=== PATIENT | male | born 2000 | race Caucasian/White ===

== ENCOUNTER 2019-04-26 17:30 | Emergency (ER) | payer BC ==
[2019-04-26 18:16] VITALS: BP 137/81
--- NOTE | 2019-04-26 18:58 | ED ---
GI/ HPI - HPI Summary HPI Summary: 19 yr old male with the complaint of scrotal itching. He has no penile itching. No discharge and no dysuria. The patient plays Lacrosse and practices now. He wears an athletic supporter. He has itching without any lesion or redness to the scrotum. He has no testicular pain. No inguinal or groin pain or rash. He is sexually active, but is not concerned about any exposure. He does not want any blood work done. No RPR or HIV. He only wants the urine sent for GC and Chlamydia. - History of Current Complaint Chief Complaint: UCSkin Time Seen by Provider: 04/26/19 18:26 Stated Complaint: PERSONAL Pain Intensity: 0 - Allergy/Home Medications Allergies/Adverse Reactions: Allergies Allergy/AdvReac Type Severity Reaction Status Date / Time No Known Allergies Allergy Verified 04/26/19 18:17 PMH/Surg Hx/FS Hx/Imm Hx Infectious Disease History: No Infectious Disease History: Denies: Traveled Outside the [place] in Last 30 Days - Family History Known Family History: Positive: None Negative: Diabetes - Social History Alcohol Use: Occasionally Substance Use Type: Reports: None Smoking Status (MU): Current Some Day Smoker Type: Cigars Review of Systems Constitutional: Negative Positive: Other - skin irritation scrotum. All Other Systems Reviewed And Are Negative: Yes Physical Exam Triage Information Reviewed: Yes Vital Signs On Initial Exam: Initial Vitals Temp Pulse Resp BP Pulse Ox 98.1 F 59 16 137/81 100 04/26/19 18:14 04/26/19 18:14 04/26/19 18:14 04/26/19 18:14 04/26/19 18:14 Vital Signs Reviewed: Yes Appearance: Positive: Well-Appearing, No Pain Distress Skin: Positive: Warm, Skin Color Reflects Adequate Perfusion Head/Face: Positive: Normal Head/Face Inspection Eyes: Positive: EOMI Respiratory/Lung Sounds: Positive: Other - normal effort Cardiovascular: Positive: Pulses are Symmetrical in both Upper and Lower Extremities Abdomen Description: Positive: Nontender, No Organomegaly Male Genital Exam: Positive: Normal Genitalia, No Hernia, Other - No obvious redness or lesions or vesicles to the scrotal skin.. Negative: Inguinal Tenderness, Scrotum Tenderness (R), Scrotum Tenderness (L), Testicular Tenderness (R), Testicular Tenderness (L), Urethral Discharge Musculoskeletal: Positive: Strength/ROM Intact Neurological: Positive: Sensory/Motor Intact, Alert, Oriented to Person Place, Time, CN Intact II-III, Speech Normal Psychiatric: Positive: Normal Diagnostics - Vital Signs Vital Signs Temp Pulse Resp BP Pulse Ox 04/26/19 18:14 98.1 F 59 16 137/81 100 - Laboratory Lab Statement: Any lab studies that have been ordered have been reviewed, and results considered in the medical decision making process. GIGU Course/Dx - Course Course Of Treatment: 19 yr old with scrotal itching. DC home. Recommend miconazole powder for the next week. 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 - Diagnoses Provider Diagnoses: Tinea cruris Discharge ED - Sign-Out/Discharge Documenting (check all that apply): Patient Departure All imaging exams completed and their final reports reviewed: No Studies - Discharge Plan Condition: Good Disposition: HOME Patient Education Materials: Jock Itch (ED), Hypertension (ED) Referrals: [facility] [place] PHYSICIAN REFERRAL [Outside] - 2 Days No Primary Care Phys,NOPCP [Primary Care Provider] - Additional Instructions: leaf size picker miconazole powder at the drug store. Ask the pharmacist to find it if you need help. It should be in the antifungal section. Use the powder twice a day to the area for the next week. - Billing Disposition and Condition Condition: GOOD Disposition: Home
[2019-04-29 13:28] LABS: Chlamydia trachomatis NAA Negative (Negative); Neisseria gonorrhoeae (GC) NAA Negative (Negative)
== END 2019-04-26 19:03 | disposition home or self-care (01) ==
LOC: UCCORT 17:30
DX: B35.6 Tinea cruris (principal)
CPT/HCPCS: 87491; 87591; 99211; G0463

== ENCOUNTER 2019-07-28 10:05 | Emergency (ER) | payer BC ==
[2019-07-28 11:13] VITALS: BP 130/61
--- NOTE | 2019-07-28 12:44 | UC ---
Hand/Wrist HPI - HPI Summary HPI Summary: 19 yo male hyperextended his right wrist yesterday playing lacrosse He is right handed pain 11/02 - History Of Current Complaint Chief Complaint: UCUpperExtremity Stated Complaint: RIGHT WRIST INJURY Time Seen by Provider: 07/28/19 12:13 Hx Obtained From: Patient Onset/Duration: Sudden Onset, Lasting Hours Severity Initially: Severe Severity Currently: Moderate Pain Intensity: 5 Pain Scale Used: 0-10 Numeric Character Of Pain: Aching Alleviating Factor(s): Nothing Associated Signs And Symptoms: Positive: Swelling Related History: Dominant Hand Right Hands: 1 - swollen/tender distal radius/no snuff box tenderness - Allergies/Home Medications Allergies/Adverse Reactions: Allergies Allergy/AdvReac Type Severity Reaction Status Date / Time No Known Allergies Allergy Verified 07/28/19 11:07 Home Medications: Home Medications NK [No Home Medications Reported] 07/28/19 [History Confirmed 07/28/19] PMH/Surg Hx/FS Hx/Imm Hx Previously Healthy: Yes - Surgical History Surgical History: None - Family History Known Family History: Positive: Hypertension Negative: Diabetes - Social History Alcohol Use: Occasionally Substance Use Type: None Smoking Status (MU): Current Some Day Smoker Type: Cigars Review of Systems All Other Systems Reviewed And Are Negative: Yes Constitutional: Positive: Negative Skin: Positive: Negative Eyes: Positive: Negative ENT: Positive: Negative Respiratory: Positive: Negative Cardiovascular: Positive: Negative Gastrointestinal: Positive: Negative Genitourinary: Positive: Negative Musculoskeletal: Positive: Arthralgia - right wrist Neurological: Positive: Negative Psychological: Positive: Negative Physical Exam Triage Information Reviewed: Yes Appearance: Well-Appearing, No Pain Distress, Well-Nourished Vital Signs: Initial Vital Signs Temp 97.8 F 07/28/19 11:08 Pulse 72 07/28/19 11:08 Resp 16 07/28/19 11:08 BP 130/61 07/28/19 11:08 Pulse Ox 100 07/28/19 11:08 Vital Signs Reviewed: Yes Eyes: Positive: Conjunctiva Clear ENT: Positive: Hearing grossly normal. Negative: Nasal congestion, Nasal drainage, Trismus, Muffled voice, Hoarse voice Neck: Positive: Supple, Nontender Respiratory: Positive: Lungs clear, Normal breath sounds, No respiratory distress, No accessory muscle use Cardiovascular: Positive: RRR, No Murmur Musculoskeletal: Positive: ROM Limited @, Edema @, Other: - seee image Neurological: Positive: Alert Psychological Exam: Normal Skin Exam: Normal Procedures - Splinting Right Upper Extremity Hand-Made Type: orthoglass Splint: sugar-tong Pre-Proc Neuro Vasc Exam: normal Post-Proc Neuro Vasc Exam: normal Diagnostics - Radiology No standard instances Radiology Interpretation Completed By: Radiologist Summary of Radiographic Findings: A transversely oriented, nondisplaced, probably intra-articular fracture extends through the radial styloid. The joint spaces are preserved. Near-anatomic alignment is maintained. Hand/Wrist Course/Dx - Differential Dx/Diagnosis Provider Diagnosis: Distal radius fracture, right Discharge ED - Sign-Out/Discharge Documenting (check all that apply): Patient Departure All imaging exams completed and their final reports reviewed: Yes - Discharge Plan Condition: Stable Disposition: HOME Patient Education Materials: Wrist Fracture in Adults (ED) Referrals: Fritz Carlisle MD [Medical Doctor] - As Soon As Possible Additional Instructions: splint sling advil or aleve if needed - Billing Disposition and Condition Condition: STABLE Disposition: Home
== END 2019-07-28 12:52 | disposition home or self-care (01) ==
LOC: UCCORT 10:05
DX: S52.501A Unspecified fracture of the lower end of right radius, initial encounter for closed fracture (principal); X58.XXXA Exposure to other specified factors, initial encounter; Y93.65 Activity, lacrosse and field hockey; Y92.9 Unspecified place or not applicable; Z72.0 Tobacco use
CPT/HCPCS: 99212; G0463